=== PATIENT | female | born 1990 | race African-American/Black ===

== ENCOUNTER 2017-10-22 20:35 | Emergency (ER) | payer MEDICAID ==
[2017-10-22 21:00] LABS: URINE HCG POC HCG NEGATIVE (Negative)
[2017-10-22 21:01] LABS: BILIRUBIN,URINE NEGATIVE (NEG); CLARITY,URINE CLOUDY; COLOR,URINE YELLOW; GLUCOSE,URINE NEGATIVE (NEG); NITRITE,URINE NEGATIVE (NEG); PROTEIN,URINE NEGATIVE (NEG-TRACE); UROBILINOGEN,URINE 0.2 mg/dL (0.2 mg/dL)
[2017-10-22 21:24] LABS: BACTERIA,URINE 0 /HPF (0-FEW); RBC,URINE 0 /HPF (0-2); SQUAMOUS EPITHELIAL CELL,UR MOD /LPF; WBC,URINE >40 /HPF (0-4)
[2017-10-22 21:25] LABS: TRICHOMONAS,URINE PRESENT
[2017-10-22] MEDS: AZITHROMYCIN 250 MG TABLET. PO (21:30)
[2017-10-22] MEDS: cefTRIAXone IM 250 MG VIAL IM (21:40)
[2017-10-22] MEDS: metroNIDAZOLE 500 MG TABLET PO (21:40)
[2017-10-26 15:30] LABS: CHLAMYDIA PROBE Negative (Negative); GC PROBE Positive (Negative)
== END 2017-10-22 21:55 | disposition home or self-care (01) ==
LOC: ER 20:35
DX: A59.01 Trichomonal vulvovaginitis (principal); N76.0 Acute vaginitis; B96.89 Other specified bacterial agents as the cause of diseases classified elsewhere; F31.9 Bipolar disorder, unspecified; F17.210 Nicotine dependence, cigarettes, uncomplicated
CPT/HCPCS: 81001; 81025; 87086; 87491; 87591; 96372; 99284-25; 99285-25; J0696; Q0111; Q0144